=== PATIENT | female | born 1950 | race African-American/Black ===

== ENCOUNTER 2019-05-28 18:52 | Inpatient (IN) | payer MEDICARE, MEDICAID ==
[~2019-05-28] VITALS: Ht 180.3 cm; Wt 103.0 kg
[2019-05-28] MEDS ORDERED: KETOROLAC 15MG/ML VIAL IV ONE (23:00)
[2019-05-28] MEDS ORDERED: TRAMADOL 50MG TABLET PO ONE (23:00)
[2019-05-29] MEDS ORDERED: CLINDAMYCIN 600 MG in SODIUM CHLORIDE 0.9% 50 ML IV NR (00:45)
[2019-05-29] MEDS ORDERED: LEVOFLOXACIN 500MG PREMIX 100 ML IV NR (00:45)
[2019-05-29 00:56] LABS: BASOPHILS % 0.8 % (0.0-2.0); EOSINOPHILS % 1.3 % (0.0-5.0); HEMATOCRIT. 41.7 % (36.0-48.0); HEMOGLOBIN. 13.6 g/dL (12.0-16.0); LYMPHOCYTES % 25.2 % (20.0-50.0); MEAN CORPUSCULAR HEMOGLOBIN 28.6 pg (28.0-32.0); MEAN PLATELET VOLUME 10.2 fl (7.4-10.4); MONOCYTES % 8.6 % (2.0-8.0); NEUTROPHILS % 64.1 % (40.0-76.0); PLATELET 177 x1000/uL (130-400); RED BLOOD CELL COUNT 4.74 mill/uL (4.2-5.4); RED CELL DISTRIBUTION WIDTH 15.7 % (11.6-14.6)
[2019-05-29] MEDS ORDERED: IOHEXOL-350 100 ML BOTTLE ONE (02:44)
[2019-05-29 04:00] VITALS: BP 174/103
[2019-05-29 04:35] VITALS: BP 115/71
[2019-05-29] MEDS ORDERED: ASPI-1393 PO (05:18)
[2019-05-29] MEDS ORDERED: IBUP-2030 PO (05:18)
[2019-05-29] MEDS ORDERED: CIME400T PO (05:18)
[2019-05-29] MEDS ORDERED: KETOROLAC 30MG/ML VIAL IV PRN (06:15)
[2019-05-29 08:00] VITALS: BP 108/44
[2019-05-29] MEDS: KETOROLAC 15MG/ML VIAL IV PRN ×3 (08:47→22:25)
[2019-05-29 09:46] LABS: BASOPHILS % 0.7 % (0.0-2.0); EOSINOPHILS % 1.5 % (0.0-5.0); HEMATOCRIT. 37.4 % (36.0-48.0); HEMOGLOBIN. 12.2 g/dL (12.0-16.0); LYMPHOCYTES % 14.2 % (20.0-50.0); MEAN CORPUSCULAR HEMOGLOBIN 28.8 pg (28.0-32.0); MEAN CORPUSCULAR VOLUME 88.2 fL (81.0-99.0); MEAN PLATELET VOLUME 11.1 fl (7.4-10.4); MONOCYTES % 9.2 % (2.0-8.0); NEUTROPHILS % 74.4 % (40.0-76.0); PLATELET 183 x1000/uL (130-400); RED BLOOD CELL COUNT 4.23 mill/uL (4.2-5.4); RED CELL DISTRIBUTION WIDTH 15.4 % (11.6-14.6)
[2019-05-29] MEDS ORDERED: ACETAMINOPHEN 325MG TABLET PO PRN (10:15)
[2019-05-29] MEDS ORDERED: DOCUSATE SODIUM 100MG CAPSULE PO PRN (10:15)
[2019-05-29] MEDS ORDERED: CLONIDINE 0.1MG TABLET PO PRN (10:15)
[2019-05-29] MEDS ORDERED: IPRATROPIUM/ALBUTEROL 0.5-3(2.5)MG/3ML NEB INH PRN (10:15)
[2019-05-29 12:00] VITALS: BP 109/57
[2019-05-29] MEDS: CLINDAMYCIN 600MG PREMIX 50 ML IV SCH ×2 (12:50→17:17)
[2019-05-29] MEDS: ASPIRIN 81MG TABLET PO SCH (12:50)
[2019-05-29 16:00] VITALS: BP_SYST 147; BP_SYST 167; BP_DIAS 87; BP_DIAS 94
[2019-05-29 20:00] VITALS: BP 118/58
[2019-05-30] VITALS: BP 111/57
[2019-05-30] MEDS: CLINDAMYCIN 600MG PREMIX 50 ML IV SCH ×4 (02:02→18:27)
[2019-05-30] MEDS: HYDROCODONE/ACETAMINOPHEN 5/325MG TABLET PO PRN ×2 (03:31→08:14)
[2019-05-30 04:00] VITALS: BP 110/55
[2019-05-30 07:44] LABS: BASOPHILS % 0.5 % (0.0-2.0); EOSINOPHILS % 1.1 % (0.0-5.0); HEMATOCRIT. 34.9 % (36.0-48.0); HEMOGLOBIN. 11.4 g/dL (12.0-16.0); LYMPHOCYTES % 19.4 % (20.0-50.0); MEAN CORPUSCULAR HEMOGLOBIN 28.7 pg (28.0-32.0); MEAN CORPUSCULAR VOLUME 88.1 fL (81.0-99.0); MONOCYTES % 12.4 % (2.0-8.0); NEUTROPHILS % 66.6 % (40.0-76.0); PLATELET 178 x1000/uL (130-400); RED BLOOD CELL COUNT 3.96 mill/uL (4.2-5.4); RED CELL DISTRIBUTION WIDTH 15.1 % (11.6-14.6)
[2019-05-30] MEDS: ASPIRIN 81MG TABLET PO SCH (08:13)
[2019-05-30 12:00] VITALS: BP 148/86
[2019-05-30] MEDS: HYDROCODONE/ACETAMINOPHEN 10/325MG TABLET PO PRN ×2 (12:28→17:41)
[2019-05-30 16:00] VITALS: BP 150/67
[2019-05-30 20:00] VITALS: BP 130/71
[2019-05-30] MEDS: KETOROLAC 15MG/ML VIAL IV PRN (21:49)
[2019-05-30] MEDS: DIPHENHYDRAMINE 25MG CAPSULE PO PRN (23:39)
[2019-05-31] VITALS: BP 137/67
[2019-05-31] MEDS: CLINDAMYCIN 600MG PREMIX 50 ML IV SCH ×3 (02:09→20:03)
[2019-05-31 04:00] VITALS: BP 123/57
[2019-05-31] MEDS: KETOROLAC 15MG/ML VIAL IV PRN ×4 (04:08→20:44)
[2019-05-31] MEDS: DIPHENHYDRAMINE 25MG CAPSULE PO PRN ×2 (06:30→23:10)
[2019-05-31 06:31] LABS: CHLORIDE 109 mEq/L (98-107)
[2019-05-31 07:00] LABS: BASOPHILS % 0.8 % (0.0-2.0); EOSINOPHILS % 1.6 % (0.0-5.0); HEMOGLOBIN. 11.4 g/dL (12.0-16.0); LYMPHOCYTES % 21.6 % (20.0-50.0); MEAN CORPUSCULAR HEMOGLOBIN 29.7 pg (28.0-32.0); MEAN CORPUSCULAR VOLUME 88.6 fL (81.0-99.0); MONOCYTES % 11.4 % (2.0-8.0); NEUTROPHILS % 64.6 % (40.0-76.0); RED BLOOD CELL COUNT 3.84 mill/uL (4.2-5.4); RED CELL DISTRIBUTION WIDTH 15.1 % (11.6-14.6)
[2019-05-31] MEDS: ASPIRIN 81MG TABLET PO SCH (08:06)
[2019-05-31 08:23] VITALS: BP 120/75
[2019-05-31 09:59] LABS: PLATELET 172 x1000/uL (130-400)
[2019-05-31 12:00] VITALS: BP 134/68
[2019-05-31 16:00] VITALS: BP 119/55
[2019-05-31 20:00] VITALS: BP 118/60
[2019-06-01] VITALS: BP 150/60
[2019-06-01] MEDS: KETOROLAC 15MG/ML VIAL IV PRN ×4 (00:55→20:22)
[2019-06-01] MEDS: CLINDAMYCIN 600MG PREMIX 50 ML IV SCH ×3 (01:00→17:41)
[2019-06-01 04:00] VITALS: BP 117/58
[2019-06-01 06:41] LABS: BASOPHILS % 0.6 % (0.0-2.0); EOSINOPHILS % 3.9 % (0.0-5.0); HEMATOCRIT. 34.7 % (36.0-48.0); HEMOGLOBIN. 11.5 g/dL (12.0-16.0); LYMPHOCYTES % 26.2 % (20.0-50.0); MEAN CORPUSCULAR HEMOGLOBIN 29.3 pg (28.0-32.0); MEAN PLATELET VOLUME 10.1 fl (7.4-10.4); MONOCYTES % 12.1 % (2.0-8.0); NEUTROPHILS % 57.2 % (40.0-76.0); PLATELET 192 x1000/uL (130-400); RED BLOOD CELL COUNT 3.94 mill/uL (4.2-5.4); RED CELL DISTRIBUTION WIDTH 14.9 % (11.6-14.6)
[2019-06-01 06:53] LABS: CHLORIDE 107 mEq/L (98-107)
[2019-06-01 08:00] VITALS: BP 127/66
[2019-06-01] MEDS: ASPIRIN 81MG TABLET PO SCH (09:05)
[2019-06-01 12:00] VITALS: BP 124/53
[2019-06-01 16:00] VITALS: BP 131/65
[2019-06-01 20:00] VITALS: BP 126/54
[2019-06-01] MEDS: ZOLPIDEM TARTRATE 5MG TABLET PO SCH (21:50)
[2019-06-01] MEDS ORDERED: COLCHICINE 0.6MG TABLET PO NR (22:00)
[2019-06-01] MEDS: CELECOXIB 200MG CAPSULE PO SCH (23:11)
[2019-06-02] VITALS: BP 132/68
[2019-06-02] MEDS: CLINDAMYCIN 600MG PREMIX 50 ML IV SCH ×3 (02:07→17:09)
[2019-06-02 04:00] VITALS: BP 143/71
[2019-06-02] MEDS: HYDROCODONE/ACETAMINOPHEN 5/325MG TABLET PO PRN ×3 (04:53→14:00)
[2019-06-02 06:51] LABS: HEMATOCRIT. 35.8 % (36.0-48.0); HEMOGLOBIN. 11.8 g/dL (12.0-16.0); MEAN CORPUSCULAR HEMOGLOBIN 28.9 pg (28.0-32.0); MEAN CORPUSCULAR VOLUME 87.9 fL (81.0-99.0); PLATELET 231 x1000/uL (130-400); RED BLOOD CELL COUNT 4.07 mill/uL (4.2-5.4); RED CELL DISTRIBUTION WIDTH 15.1 % (11.6-14.6)
[2019-06-02 06:58] LABS: CHLORIDE 108 mEq/L (98-107)
[2019-06-02 08:00] VITALS: BP 119/51
[2019-06-02] MEDS: CELECOXIB 200MG CAPSULE PO SCH ×2 (08:57→17:09)
[2019-06-02] MEDS: ASPIRIN 81MG TABLET PO SCH (08:57)
[2019-06-02] MEDS: ONDANSETRON HCL 4MG/2ML INJ IV PRN (11:00)
[2019-06-02 12:00] VITALS: BP 109/51
[2019-06-02 16:13] VITALS: BP 109/51
[2019-06-02 16:44] LABS: PLATELET ESTIMATE NORMAL
[2019-06-02 20:00] VITALS: BP 139/68
[2019-06-02] MEDS: ZOLPIDEM TARTRATE 5MG TABLET PO SCH (21:07)
[2019-06-03] VITALS: BP 135/74
[2019-06-03] MEDS: HYDROCODONE/ACETAMINOPHEN 5/325MG TABLET PO PRN ×3 (00:03→12:53)
[2019-06-03] MEDS: CLINDAMYCIN 600MG PREMIX 50 ML IV SCH ×3 (02:14→17:16)
[2019-06-03 05:04] VITALS: BP 123/52
[2019-06-03 08:00] VITALS: BP 110/65
[2019-06-03] MEDS: ASPIRIN 81MG TABLET PO SCH (08:41)
[2019-06-03] MEDS: CELECOXIB 200MG CAPSULE PO SCH ×2 (08:41→17:16)
[2019-06-03] MEDS: ONDANSETRON HCL 4MG/2ML INJ IV PRN (10:41)
[2019-06-03 12:00] VITALS: BP 118/52
[2019-06-03 16:00] VITALS: BP 102/47
[2019-06-03 20:00] VITALS: BP 115/91
[2019-06-04] VITALS: BP 113/74
[2019-06-04] MEDS: ZOLPIDEM TARTRATE 5MG TABLET PO SCH ×2 (01:22→23:39)
[2019-06-04] MEDS: CLINDAMYCIN 600MG PREMIX 50 ML IV SCH ×3 (01:22→17:42)
[2019-06-04 04:00] VITALS: BP 142/81
[2019-06-04] MEDS: HYDROCODONE/ACETAMINOPHEN 5/325MG TABLET PO PRN (06:33)
[2019-06-04 08:00] VITALS: BP 113/61
[2019-06-04] MEDS: ASPIRIN 81MG TABLET PO SCH (08:36)
[2019-06-04] MEDS: CELECOXIB 200MG CAPSULE PO SCH ×2 (09:00→17:00)
[2019-06-04] MEDS ORDERED: KETOROLAC 15MG/ML VIAL IV PRN (09:15)
[2019-06-04 12:00] VITALS: BP 122/68
[2019-06-04] MEDS: PANTOPRAZOLE 40MG DR TABLET PO SCH (12:14)
[2019-06-04 16:00] VITALS: BP 132/88
[2019-06-04] MEDS: OXYCODONE HCL/ACETAMINOPHEN 5/325MG TABLET PO PRN (17:42)
[2019-06-04 20:00] VITALS: BP 130/64
[2019-06-04] MEDS: MAGNESIUM/ALUMINUM HYDROXIDE/SIMETHICONE 30ML UDC PO PRN (20:54)
[2019-06-05] VITALS: BP 126/61
[2019-06-05] MEDS: CLINDAMYCIN 600MG PREMIX 50 ML IV SCH ×2 (02:12→09:29)
[2019-06-05 04:00] VITALS: BP 137/61
[2019-06-05] MEDS: OXYCODONE HCL/ACETAMINOPHEN 5/325MG TABLET PO PRN (04:31)
[2019-06-05] MEDS: MAGNESIUM/ALUMINUM HYDROXIDE/SIMETHICONE 30ML UDC PO PRN (06:55)
[2019-06-05] MEDS: PANTOPRAZOLE 40MG DR TABLET PO SCH (06:55)
[2019-06-05 07:33] LABS: CHLORIDE 104 mEq/L (98-107)
[2019-06-05 07:34] LABS: BASOPHILS % 0.6 % (0.0-2.0); EOSINOPHILS % 3.4 % (0.0-5.0); HEMATOCRIT. 34.7 % (36.0-48.0); HEMOGLOBIN. 11.3 g/dL (12.0-16.0); MEAN CORPUSCULAR HEMOGLOBIN 28.7 pg (28.0-32.0); MEAN CORPUSCULAR VOLUME 88.2 fL (81.0-99.0); MEAN PLATELET VOLUME 10.5 fl (7.4-10.4); MONOCYTES % 9.7 % (2.0-8.0); NEUTROPHILS % 57.3 % (40.0-76.0); PLATELET 251 x1000/uL (130-400); RED BLOOD CELL COUNT 3.94 mill/uL (4.2-5.4); RED CELL DISTRIBUTION WIDTH 14.9 % (11.6-14.6)
[2019-06-05 08:00] VITALS: BP 113/61
[2019-06-05] MEDS: CELECOXIB 200MG CAPSULE PO SCH ×2 (09:00→09:29)
[2019-06-05] MEDS: ASPIRIN 81MG TABLET PO SCH (09:29)
[2019-06-05] MEDS ORDERED: CELE200C PO (09:50)
[2019-06-05] MEDS ORDERED: CLIN300C11 MT (09:50)
[2019-06-05] MEDS ORDERED: PANT40TA4 PO (09:50)
[2019-06-05 10:45] VITALS: BP 113/60
== END 2019-06-05 11:25 | disposition home or self-care (01) | DRG 558 ==
LOC: ER 18:52 → 5WST 05-29 01:59 → EDBEDREQTM 05-29 02:02 → EDBEDREQSVC 05-29 02:02 → EDBEDREQ 05-29 02:02 → ENRESERV 05-29 02:57
PROVIDERS: ADMIT Internal Medicine; ATTEND Internal Medicine
DX: M77.9 Enthesopathy, unspecified (principal); L03.113 Cellulitis of right upper limb; M19.031 Primary osteoarthritis, right wrist; I10 Essential (primary) hypertension; M11.20 Other chondrocalcinosis, unspecified site; G40.909 Epilepsy, unspecified, not intractable, without status epilepticus; S66.119A Strain of flexor muscle, fascia and tendon of unspecified finger at wrist and hand level, initial encounter; X58.XXXA Exposure to other specified factors, initial encounter; Z96.659 Presence of unspecified artificial knee joint; D72.821 Monocytosis (symptomatic); Z88.0 Allergy status to penicillin; Z88.8 Allergy status to other drugs, medicaments and biological substances; Y93.89 Activity, other specified; Y92.89 Other specified places as the place of occurrence of the external cause; Y99.8 Other external cause status
CPT/HCPCS: 36415; 73110; 73130; 73201; 73221; 76881; 80048; 82668; 83036; 84484; 84550; 85651; 86038; 86140; 86430; 93005; 93971; 96365; 96367; 96375; 99285; C1893; J1885; J1956; J2405; J3490; J7040; J7050; Q0163; Q9967